=== PATIENT | female | born 1985 | race Caucasian/White ===

== ENCOUNTER 2024-10-13 12:40 | Emergency (ER) | payer SELFPAY ==
[~2024-10-13] VITALS: Ht 170.1 cm; Wt 82.6 kg
[2024-10-13 13:48] LABS: BASO # 0.1 10*3/uL (0.0-0.1); BASO % 1.3 % (0.0-1.0); EOS # 0.4 10*3/uL (0.0-0.4); EOS % 4.1 % (1.0-4.0); MEAN CELL VOLUME 94.0 fl (81.0-99.0); MEAN CORPUSCULAR HGB 29.8 pg (27.0-31.0); MEAN PLATELET VOLUME 11.3 fl (9.6-12.3); MONO # 0.9 10*3/uL (0.1-1.0); MONO % 8.2 % (3.0-9.0); NEUT # 6.3 10*3/uL (2.3-7.9); NEUT % 60.2 % (47.0-73.0); NUCLEATED RED BLOOD CELL 0.0 % (0.0-0.0); NUCLEATED RED BLOOD CELL 0.0 10*3/uL (0.0-0.0); PLATELET COUNT AUTOMATED 337 10*3/uL (130-400); RED CELL DISTRI WIDTH 13.7 % (0-14.5)
[2024-10-13 13:52] LABS: BILIRUBIN Negative (Negative); BLOOD 3+ (Negative); CLARITY Cloudy (Clear); COLOR Red (Yellow); KETONE Negative (Negative); LEUKO ESTERASE 1+ (Negative); NITRITE Negative (Negative); PH 5.0 (4.5-8.0); SPECIFIC GRAVITY 1.020 (1.001-1.030); UROBILINOGEN 0.2 E.U./dl (0.0-1.0)
[2024-10-13 14:10] LABS: BUN 11 mg/dl (9-23)
[2024-10-13 14:21] LABS: BACTERIA TRACE
== END 2024-10-13 15:02 | disposition left against medical advice (07) ==
LOC: ED 12:40
PROVIDERS: Internal Medicine
DX: R60.0 Localized edema (principal); M79.671 Pain in right foot; M79.672 Pain in left foot; M25.571 Pain in right ankle and joints of right foot; M25.572 Pain in left ankle and joints of left foot; Z53.29 Procedure and treatment not carried out because of patient's decision for other reasons